=== PATIENT | female | born 1975 | race Asian ===

== ENCOUNTER 2021-02-16 07:11 | Outpatient (CLI) | payer OTHER ==
[2021-02-16 07:51] LABS: BILIRUBIN,URINE NEGATIVE (NEGATIVE); BLOOD, URINE NEGATIVE (NEGATIVE); CLARITY/URINE CLEAR (CLEAR); GLUCOSE,URINE NEGATIVE (NEGATIVE); KETONES,URINE NEGATIVE (NEGATIVE); LEUKOCYTE ESTERASE ,URINE NEGATIVE (NEGATIVE); NITRITE, URINE NEGATIVE (NEGATIVE); PROTEIN URINE NEGATIVE (NEGATIVE); UROBILINOGEN,URINE 0.2 (0.2-1.0)
[2021-02-16 07:53] LABS: COLOR,URINE STRAW (YELLOW)
[2021-02-16 07:58] LABS: BASOPHILS % (AUTO) 0.8 % (0.0-2.0); EOSINOPHILS # (AUTO) 0.1 K/uL (0.0-0.4); EOSINOPHILS % (AUTO) 2.3 % (0.0-4.0); HEMATOCRIT 39.4 % (36-48); HEMOGLOBIN 12.9 g/dL (12.0-16.0); LYMPHOCYTES # (AUTO) 1.4 K/uL (1.0-5.5); LYMPHOCYTES % (AUTO) 26.4 % (20.5-51.5); MEAN CORPUSCULAR HEMOGLOBIN 27 pg (27-31); MEAN CORPUSCULAR HGB CONC 33 % (32-36); MEAN CORPUSCULAR VOLUME 81 fL (79.0-98.0); MONOCYTES # (AUTO) 0.4 K/uL (0.0-1.0); MONOCYTES % (AUTO) 7.8 % (1.7-9.3); NEUTROPHILS # (AUTO) 3.4 K/uL (1.8-7.7); NEUTROPHILS % (AUTO) 62.7 % (40.0-70.0); PLATELET COUNT (AUTO) 252 K/uL (130-430); RED BLOOD CELL COUNT(AUTO) 4.85 MIL/uL (4.2-6.2); RED CELL DISTRIBUTION WIDTH 14.6 % (9.0-15.0); WHITE BLOOD COUNT (AUTO) 5.4 K/uL (4.8-10.8)
[2021-02-16 08:49] LABS: ERYTHROCYTE SEDIMENTATION RATE 2 MM/HR (0-20)
[2021-02-16 09:10] LABS: ALBUMIN 3.4 g/dL (3.4-4.8); CALCIUM 8.2 mg/dL (8.4-11.0); CREATININE 0.87 mg/dL (0.55-1.30); FREE T4 (FREE THYROXINE) 0.8 ng/dl (0.8-1.5); POTASSIUM 4.6 mmol/L (3.5-5.1); THYROID STIMULATING HORMONE 0.88 uIu/mL (0.36-3.74); TOTAL BILIRUBIN 0.2 mg/dL (0.0-1.0)
[2021-02-16 09:38] LABS: C-REACTIVE PROTEIN QUANT 0.4 mg/dL (0-0.5)
[2021-02-17 07:06] LABS: HEMOGLOBIN A1C 5.3 % (4.8-5.6)
== END 2021-02-17 20:29 | disposition home or self-care (01) ==
LOC: SLB 07:11
PROVIDERS: ATTEND Internal Medicine
DX: E66.9 Obesity, unspecified (principal); E55.9 Vitamin D deficiency, unspecified; M25.511 Pain in right shoulder
CPT/HCPCS: 36415; 80053; 80061; 81003; 82306; 82607; 83036; 84439; 84443; 85025; 85651-TC; 86140

== ENCOUNTER 2021-04-08 11:25 | Outpatient (CLI) | payer OTHER | END 2021-04-08 19:14 | disposition home or self-care (01) | LOC: SMI 11:25 | PROVIDERS: ATTEND Internal Medicine | DX: M50.121 Cervical disc disorder at C4-C5 level with radiculopathy (principal); M51.17 Intervertebral disc disorders with radiculopathy, lumbosacral region; M25.411 Effusion, right shoulder | CPT/HCPCS: 72141; 72148; 73221 ==

== ENCOUNTER 2024-02-12 09:35 | Outpatient (CLI) | payer OTHER ==
[2024-02-12 10:15] LABS: ERYTHROCYTE SEDIMENTATION RATE 4 MM/HR (0-20)
[2024-02-12 10:18] LABS: BASOPHILS % (AUTO) 0.8 % (0.0-2.0); EOSINOPHILS # (AUTO) 0.2 K/uL (0.0-0.4); EOSINOPHILS % (AUTO) 3.4 % (0.0-4.0); HEMATOCRIT 39.8 % (36-48); LYMPHOCYTES # (AUTO) 1.8 K/uL (1.0-5.5); LYMPHOCYTES % (AUTO) 30.9 % (20.5-51.5); MEAN CORPUSCULAR HEMOGLOBIN 26 pg (27-31); MEAN CORPUSCULAR HGB CONC 33 % (32-36); MEAN CORPUSCULAR VOLUME 80 fL (79.0-98.0); MONOCYTES # (AUTO) 0.5 K/uL (0.0-1.0); MONOCYTES % (AUTO) 9.1 % (1.7-9.3); NEUTROPHILS # (AUTO) 3.2 K/uL (1.8-7.7); NEUTROPHILS % (AUTO) 55.8 % (40.0-70.0); PLATELET COUNT (AUTO) 274 K/uL (130-430); RED BLOOD CELL COUNT(AUTO) 4.96 MIL/uL (4.2-6.2); WHITE BLOOD COUNT (AUTO) 5.7 K/uL (4.8-10.8)
[2024-02-12 10:30] LABS: BILIRUBIN,URINE NEGATIVE (NEGATIVE); BLOOD, URINE NEGATIVE (NEGATIVE); CLARITY/URINE CLEAR (CLEAR); COLOR,URINE YELLOW (YELLOW); GLUCOSE,URINE NEGATIVE (NEGATIVE); KETONES,URINE NEGATIVE (NEGATIVE); LEUKOCYTE ESTERASE ,URINE NEGATIVE (NEGATIVE); NITRITE, URINE NEGATIVE (NEGATIVE); PH,URINE 6.5 (5.0-8.0); PROTEIN URINE NEGATIVE (NEGATIVE); UROBILINOGEN,URINE 0.2 (0.2-1.0)
[2024-02-12 11:07] LABS: ALANINE AMINOTRANSFERASE 13 U/L (12-78); ALBUMIN 3.3 g/dL (3.4-4.8); ANION GAP 8 (5-15); ASPARTATE AMINOTRANSFERASE < 5 U/L (10-37); CALCIUM 8.4 mg/dL (8.4-11.0); CARBON DIOXIDE 26 mmol/L (23-29); CHLORIDE 106 mmol/L (98-107); CHOLESTEROL 189 mg/dL (<200); CREATININE 0.89 mg/dL (0.55-1.30); GFR AFRICAN AMERICAN 86 mL/min (>90); GLUCOSE 93 mg/dL (74-106); HDL CHOLESTEROL 53 mg/dL (>55); POTASSIUM 4.3 mmol/L (3.5-5.1); SODIUM SERUM 140 mmol/L (136-145); THYROID STIMULATING HORMONE 1.01 uIu/mL (0.34-4.82); TOTAL BILIRUBIN 0.4 mg/dL (0.0-1.0); TOTAL PROTEIN, SERUM 6.9 g/dL (6.4-8.3); TRIGLYCERIDES 118 mg/dL (30-150); UREA NITROGEN, BLOOD 16 mg/dL (8-21)
[2024-02-12 11:16] LABS: GFR NON AFRICAN-AMERICAN 71 mL/min (>90)
[2024-02-12 11:43] LABS: HEMOGLOBIN A1C 5.5 % (<5.7)
== END 2024-02-12 20:24 | disposition home or self-care (01) ==
LOC: SLB 09:35
PROVIDERS: ATTEND Internal Medicine
DX: G89.4 Chronic pain syndrome (principal); E03.9 Hypothyroidism, unspecified; E56.9 Vitamin deficiency, unspecified; R73.09 Other abnormal glucose; M51.44 Schmorl's nodes, thoracic region
CPT/HCPCS: 36415; 80053; 80061; 81001; 81003; 83037; 84443; 85025; 85651